=== PATIENT | female | born 1965 | race Caucasian/White ===

== ENCOUNTER → 2016-08-14 | Day surgery (SDC) | payer BC ==
[~2016-08-14] VITALS: Ht 172.7 cm; Wt 117.9 kg
[~2016-08-14] MED LIST: DILAUDID 2MG(HYD2 MG PO; PRINIVIL (ZESTR20 MG PO; TYLENOL EXTRA500 MG PO; VICODIN 5-3001 EACH PO; ZYRTEC10 MG PO
--- NOTE | ~2016-08-14 | OR ---
PATIENT'S NAME: JEROMY BENAVIDES [facility] AGE: 51 Y [address] ROOM: [place] [id number] LOCATION: [facility] ADMIT DATE: 08/14/2016 OR/Procedure Report DISCHARGE DATE: FAMILY PHYSICIAN: , ALEJANDRA ATTENDING PHYSICIAN: Ronak Mast SURGEON: Ronak Mast MD TOBACCO ROLLER: AMANDA Fofana. DATE OF PROCEDURE: 08/14/2016 PREOPERATIVE DIAGNOSIS: Lateral condylar fracture, right elbow. POSTOPERATIVE DIAGNOSIS: Lateral condylar fracture, right elbow. OPERATION: Open reduction and internal fixation of lateral humeral condylar fracture and capitellar fracture. ANESTHESIA: Interscalene block with a general ET tube. DESCRIPTION OF PROCEDURE: The patient was brought to the operating room after the interscalene block had been performed. In the operating room, general anesthesia was administered, and the right upper extremity was prepped and draped in an aseptic manner. The extremity was exsanguinated with elevation. A pneumatic tourniquet was inflated to 170 mmHg. A straight lateral incision was made over the elbow and carried down through the subcutaneous fat. The incision was carried down to the fracture and the capitellar and condylar fragments were flipped about 90 degrees. There was also another capitellar fragment that was inferior to the elbow. It was delivered into the wound and it appeared to belong to the proximal end of the capitellum. It was on a very thin strand of synovium and that eventually gave way, so it was a free fragment. That fragment was then fixed to the lateral condylar/capitellar fragment with two 2.7 headless screws. With the lateral condylar fragment out of the way, there was a fracture of the trochlea. That was manipulated with the surgeon's fingers and a guidepin for the 4.0 cannulated screw system was drilled from the lateral condyle posteriorly and into the fragment. That screw was countersunk. Position of these fragments was checked with the C-arm and rotating the elbow. The posterior aspect of the lateral humeral condyle that had been intact fractured through the screw hole. Another guidepin was then placed proximal to the 4.0 screw that was already in place and that appeared to fix the trochlea satisfactorily. The lateral condylar/capitellar fragment then was rotated and reduced and held with 2 sutures of the 2-0 Orthocord. A single 4.0 cannulated screw was then placed from the anterior to posterior through the epicondyle laterally and that appeared to hold the epicondyle place. A lateral humeral plate was then brought up and it appeared to fit nicely, so a 3.5 screw was placed across the oblong hole and tightened down to hold the plate against the lateral humerus. Two of the distal screws PATIENT'S NAME: JEROMY BENAVIDES [facility] AGE: 51 Y [address] ROOM: [place] [address] LOCATION: [facility] [place] ADMIT DATE: 08/14/2016 OR/Procedure Report DISCHARGE DATE: FAMILY PHYSICIAN: PHYSICIANALEJANDRA ATTENDING PHYSICIAN: Ronak Mast were then drilled and filled and 2 proximal screw holes were drilled and filled with locking screws. Position of the implants and fracture fragments was then checked with the C-arm and it appeared that there was satisfactory reduction of the elbow fragments. There was some concern that the screws into the trochlea were not long enough, but on palpation and with elbow motion, the trochlear fragment did not move. It was therefore opted to accept this. The wound was irrigated copiously with saline and the lateral capsule was closed with a running 0 Vicryl. The remainder of the closure was by AMANDA Cifuentes who closed the subcutaneous fat with a running 2-0 Vicryl and the skin with skin andrei. Dressings and a posterior splint were applied. The patient was sent to the recovery area, having tolerated the procedure well. MD MAGGIE ESPINO/giovanna /[id number] d: 08/14/161947 t: 08/21/161127, OPERATIVE SUMMARY
== END | disposition disaster alternative care site (69) ==
LOC: GPOC 08-13 17:00 → GSDC 07:51
PROC: 0PSF04Z Reposition Right Humeral Shaft with Internal Fixation Device, Open Approach (ICD-10-PCS; principal; 2016-08-14)
DX: S42.451A Displaced fracture of lateral condyle of right humerus, initial encounter for closed fracture (principal); I10 Essential (primary) hypertension; Z79.899 Other long term (current) drug therapy
CPT/HCPCS: C1713; C1769; J1100; J2250; J2405; J3010; J7120